=== PATIENT | female | born 1995 | race Caucasian/White ===

== ENCOUNTER 2024-02-25 09:48 | Inpatient (IN) | payer OTHER ==
[2024-02-24 10:55] LABS: Hematocrit 37.8 % (34.9-44.5); Hemoglobin 12.9 g/dL (12.0-15.5); Mean Corpuscular HGB CONC 34.1 g/dL (32.0-36.0); Mean Corpuscular Hemoglobin 30.9 pg (27.0-33.0); Mean Corpuscular Volume 90.4 fl (81.6-98.3); Mean Platelet Volume 10.4 fl (7.4-10.4); Platelet Count 267 10x3/uL (150-450); RBC Distribution Width 13.1 % (11.5-14.5); Red Blood Cell (RBC) Count 4.18 10x6/uL (3.90-5.03); White Blood Cell (WBC) Count 13.2 10x3/uL (3.5-10.5)
[2024-02-24 11:31] LABS: HBSAg Index 0.19 S/CO (0-0.99); HIV (1/2) Antibody/Antigen Non-Reactive (NonReactive); HIV 1/2 INDEX 0.08 S/CO (<1.00); Hep B Surf Ag Non-Reactive S/CO (NonReactive)
[2024-02-24 11:52] LABS: Syphilis Antibody INDETERMINATE (Nonreactive); Syphilis Antibody Index 23.73 S/CO (<1.00 Non-Reactive)
[2024-02-25 10:26] VITALS: BMI 52.2
[2024-02-25] MEDS ORDERED: hydrALAZINE 20 MG/ML VIAL SLOW IVP PRN (10:58)
[2024-02-25] MEDS ORDERED: Bicitra 30 ML UDCUP PO PRN (10:58)
[2024-02-25] MEDS ORDERED: Promethazine HCl 25 MG/ML VIAL IM PRN ×3 (10:58→14:41)
[2024-02-25] MEDS ORDERED: Famotidine/PF 20 mg/2ml Vial SLOW IVP PRN (10:58)
[2024-02-25] MEDS ORDERED: Ondansetron PF 4 MG/2 ML Vial IVP PRN ×5 (10:58→14:41)
[2024-02-25] MEDS ORDERED: Oxytocin 30 units/NS 500 ML 500 ML IV SCH (11:00)
[2024-02-25] MEDS ORDERED: CEFAZOLIN 2 GM in Sodium Chloride 0.9% 100 ML IVPB SCH (11:30)
[2024-02-25] MEDS ORDERED: Misoprostol 200 MCG TAB PR PRN (11:35)
[2024-02-25] MEDS ORDERED: Carboprost 250 MCG/ML AMP IM PRN (11:35)
[2024-02-25] MEDS ORDERED: Tranexamic Acid 1,000 MG/10 ML VIAL IVP PRN (11:35)
[2024-02-25] MEDS ORDERED: Naloxone HCl 0.4 mg/ml Vial IV PRN ×2 (11:56→14:41)
[2024-02-25] MEDS ORDERED: Naloxone HCl 0.4 mg/ml Vial IVP PRN ×4 (11:56→14:41)
[2024-02-25] MEDS ORDERED: fentaNYL 50 mcg/mL 1 mL Vial SLOW IVP PRN ×2 (11:56→14:41)
[2024-02-25] MEDS ORDERED: diphenhydrAMINE 50 MG/ML VIAL IVP PRN ×2 (11:56→14:41)
[2024-02-25] MEDS ORDERED: Meperidine HCl/PF 25 MG (1 mL) VIAL SLOW IVP PRN ×2 (11:56→14:41)
[2024-02-25] MEDS ORDERED: Promethazine HCl 25 MG SUPP PR PRN ×2 (11:56→14:41)
[2024-02-25] MEDS ORDERED: Ketorolac Tromethamine 30 MG (1 mL) VIAL IVP PRN (11:56)
[2024-02-25] MEDS ORDERED: Moisturizing Cream (Eucerin) 113 GM JAR TOP PRN ×2 (11:56→14:41)
[2024-02-25] MEDS ORDERED: Ketorolac Tromethamine 30 MG (1 mL) VIAL IVP SCH ×2 (12:00→14:45)
[2024-02-25] MEDS ORDERED: Communication Order-Pharmacy FS SCH ×2 (12:00→14:45)
[2024-02-25] MEDS ORDERED: Acetaminophen 325 MG TAB PO PRN (13:10)
[2024-02-25] MEDS ORDERED: Lanolin Ointment 7 GM TUBE TOP PRN (13:10)
[2024-02-25] MEDS ORDERED: diphenhydrAMINE 25 MG CAP PO PRN (13:10)
[2024-02-25] MEDS: Ibuprofen 800 MG TAB PO SCH (14:17)
[2024-02-25] MEDS: Morphine PF 10 MG/10 ML VIAL ONE (17:12)
[2024-02-25] MEDS: Oxytocin 10 UNITS/ML VIAL ONE (17:12)
[2024-02-25] MEDS: ePHEDrine Sulfate 50 MG/10 ML VIAL ONE (17:12)
[2024-02-25] MEDS: Famotidine/PF 20 mg/2ml Vial ONE (17:13)
[2024-02-25] MEDS: Midazolam HCl 2 mg/2 ml Vial ONE ×2 (17:13)
[2024-02-25] MEDS: Acetaminophen 500 MG TAB PO SCH (17:16)
[2024-02-25] MEDS: Ketorolac Tromethamine 30 MG (1 mL) VIAL IVP PRN (22:07)
[2024-02-25] MEDS: Docusate 100 MG CAP PO SCH (22:11)
[2024-02-26] MEDS ORDERED: HYDROcodone/Acetaminophen 5/325 mg Tablet PO PRN (02:45)
[2024-02-26 07:14] LABS: Hematocrit 31.8 % (34.9-44.5); Hemoglobin 10.9 g/dL (12.0-15.5); Mean Corpuscular HGB CONC 34.3 g/dL (32.0-36.0); Mean Corpuscular Hemoglobin 31.9 pg (27.0-33.0); Mean Platelet Volume 10.5 fl (7.4-10.4); Platelet Count 220 10x3/uL (150-450); RBC Distribution Width 13.2 % (11.5-14.5); Red Blood Cell (RBC) Count 3.42 10x6/uL (3.90-5.03)
[2024-02-26] MEDS: Prenatal Vitamin 1 TAB PO SCH (08:07)
[2024-02-26] MEDS ORDERED: Boostrix 0.5 ML (Tdap) VIAL (>/=7 yrs of age) IM ONE (09:00)
[2024-02-27 05:01] VITALS: TEMP 98.1
[2024-02-27] MEDS: HYDROcodone/Acetaminophen 5/325 mg Tablet PO PRN (07:28)
[2024-02-27 11:44] VITALS: BP 138/86
== END 2024-02-27 12:10 | disposition home or self-care (01) | DRG 787 ==
LOC: CSHLD 09:48 → CSHPP 16:44
PROVIDERS: ADMIT Obstetrics & Gynecology; ATTEND Obstetrics & Gynecology
PROC: 10D00Z1 Extraction of Products of Conception, Low, Open Approach (ICD-10-PCS; principal; 2024-02-25)
PROC: 10D17Z9 Manual Extraction of Products of Conception, Retained, Via Natural or Artificial Opening (ICD-10-PCS; 2024-02-25)
DX: O34.211 Maternal care for low transverse scar from previous cesarean delivery (principal); O10.92 Unspecified pre-existing hypertension complicating childbirth; O24.420 Gestational diabetes mellitus in childbirth, diet controlled; Z3A.39 39 weeks gestation of pregnancy; Z37.0 Single live birth; O99.214 Obesity complicating childbirth; E66.9 Obesity, unspecified; O99.344 Other mental disorders complicating childbirth; F41.9 Anxiety disorder, unspecified; O9A.12 Malignant neoplasm complicating childbirth; C54.1 Malignant neoplasm of endometrium
CPT/HCPCS: 36415; 51702; 85027; 86593; 86780; 86850; 86900; 86901; 87340; 87389; J1885; J2250; J2274; J2590; S0028